=== PATIENT | male | born 1955 | race Caucasian/White ===

== ENCOUNTER 2019-02-06 15:58 | Outpatient (CLI) | payer BC ==
--- NOTE | 2019-02-06 16:22 | RAD ---
Exam: Chest 2 views HISTORY:Pleurisy Comparison: None FINDINGS: Lungs: No masses or consolidation. Cardiac silhouette: Normal size Pulmonary vessels: Normal Pleural Spaces: Clear Pneumothorax: None Osseous abnormalities: None of acuity. IMPRESSION: No focal consolidation.
== END 2019-02-06 15:59 | disposition home or self-care (01) ==
LOC: BICRAD 15:58
PROVIDERS: ATTEND Family Medicine
DX: R09.1 Pleurisy (principal)
CPT/HCPCS: 71046

== ENCOUNTER 2019-03-20 09:55 | Outpatient (CLI) | payer BC ==
--- NOTE | 2019-03-20 13:11 | MRI ---
MRI RIGHT UPPER EXTREMITY JOINT WITH AND WITHOUT CONTRAST: HISTORY: Shoulder pain. COMPARISON: Shoulder radiograph from 02/22/2019. FINDINGS: Of note the exam was performed not as an internal derangement protocol but as a soft tissue protocol. There is intra-articular dislocation of the biceps tendon through full-thickness tear of the subscapu brenda tendon as well as of the superior glenohumeral ligament and coracohumeral ligaments. Free edge blunting throughout the superior labrum. Full-thickness full-width supraspinatus tendon tear fro m the footprint retracted to the mid humeral head. High-grade undersurface partial tearing of the infraspinatus tendon with interstitial delamination. There was also interstitial type delamination of the teres minor. There is 50-60% chondral loss throughout the humeral head and glenoid. Type II acromion subacromial space with mild lateral downsloping. 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 Normal glenoid version. Posterior-superior intrasubstance labral tear. Mild atrophy of the right serratus anterior muscle. Normal appearance of the long thoracic nerve with out evidence for a mass. IMPRESSION: 1. Mild atrophy of the right serratus anterior muscle without abnormal mass along the long thoracic n erve. This can contribute to the clinical picture of winged scapula. 2. Full-thickness full-width supraspinatus tendon tear from the footprint retracted to the mid jessica l head. 3. Intra-articular dislocation the biceps tendon through full-thickness tear of the subscapularis ten don from the footprint along with tears of the superior glenohumeral ligament and coracohumeral ligament portions of the biceps wes. Transcribed Date/Time: 03/20/2019 1:36 PM
== END 2019-03-20 09:56 | disposition home or self-care (01) ==
LOC: SCSMRI 09:55
PROVIDERS: ATTEND Family Medicine
DX: M21.921 Unspecified acquired deformity of right upper arm (principal); M95.8 Other specified acquired deformities of musculoskeletal system; M75.101 Unspecified rotator cuff tear or rupture of right shoulder, not specified as traumatic; S43.084A Other dislocation of right shoulder joint, initial encounter
CPT/HCPCS: 82565

== ENCOUNTER 2019-05-08 20:37 | Emergency (ER) | payer BC | END 2019-05-08 23:10 | disposition home or self-care (01) | LOC: ERS 20:37 | DX: T85.695A Other mechanical complication of other nervous system device, implant or graft, initial encounter (principal); I10 Essential (primary) hypertension; E11.9 Type 2 diabetes mellitus without complications; Z79.82 Long term (current) use of aspirin; Z79.899 Other long term (current) drug therapy; Z79.4 Long term (current) use of insulin | CPT/HCPCS: 99283 ==